=== PATIENT | female | born 1985 | race African-American/Black ===

== ENCOUNTER 2020-07-13 18:55 | Emergency (ER) | payer SELFPAY ==
[~2020-07-13] VITALS: Ht 170.2 cm; Wt 61.2 kg
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
[2020-07-13 19:34] VITALS: BP 108/71
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
[2020-07-13] MEDS ORDERED: ROBAXIN-750750 MG PO (19:39)
[2020-07-13] MEDS ORDERED: IBUPROFEN600 M1 ORAL (19:39)
[2020-07-13] MEDS ORDERED: LIDODERM700 M1 TOPIC (19:39)
[2020-07-13 20:00] VITALS: BP 128/69
--- NOTE | 2020-07-13 20:00 | NUR ---
ER DISCHARGE NOTE: Patient is cleared to be discharged per ERMD, pt is aox4, on room air, with stable vital signs. pt was given dc and prescription instructions, pt was able to verbalize understanding, pt id band removed without complications. pt is able to ambulate with steady gait. pt took all belongings.
--- NOTE | 2020-07-14 09:44 | Diagnostic Imaging Report ---
Indication: Shoulder pain Technique: 3 views of the right shoulder Comparison: None Findings: Bony mineralization is within normal limits. No acute fracture or dislocation identified. Imaged portions of the right line clear. No radiopaque foreign body. Impression: No acute fracture or dislocation.
== END 2020-07-13 20:00 | disposition home or self-care (01) ==
LOC: EMR 19:50
DX: M62.830 Muscle spasm of back (principal); S39.012A Strain of muscle, fascia and tendon of lower back, initial encounter; S40.011A Contusion of right shoulder, initial encounter; V47.6XXA Car passenger injured in collision with fixed or stationary object in traffic accident, initial encounter; Y92.410 Unspecified street and highway as the place of occurrence of the external cause; Z88.8 Allergy status to other drugs, medicaments and biological substances
CPT/HCPCS: 99283